=== PATIENT | female | born 1955 | race Caucasian/White ===

== ENCOUNTER 2018-06-18 09:19 | Inpatient (IN) | payer OTHER ==
[2018-06-18] MEDS ORDERED: METOPROLOL TARTRATE 5 MG/5 ML INJ IV ONE (09:51)
[2018-06-18 10:05] LABS: Absolute Lymphocytes (CBC) 3.9 K/uL (0.7-4.9); Absolute Monocytes 0.9 K/uL (0.1-1.3); Absolute Neutrophil 7.4 K/uL (1.8-8.0); Basophils % 0.6 % (0-1.3); Eosinophils % 1.3 % (0-4.4); Hematocrit 36.5 % (36.0-45.0); Lymphocytes % 31.5 % (15.3-44.8); MPV 10.7 fL (7.6-11.3); Monocytes % 6.9 % (3.3-12.3); RBC Red Blood Cell Count 4.29 M/uL (3.86-4.86)
[2018-06-18 10:06] LABS: Protime INR 1.12
[2018-06-18] MEDS ORDERED: ENOXAPARIN 80 MG/0.8 ML SQ ONE (10:09)
[2018-06-18 10:11] LABS: Albumin 4.2 g/dL (3.4-5.0); Bilirubin Direct 0.1 mg/dL (0-0.2); Bilirubin Total 0.3 mg/dL (0.2-1.0); Magnesium 1.9 mg/dL (1.8-2.4); Potassium 4.5 mmol/L (3.5-5.1); Protein, Total 8.6 g/dL (6.4-8.2); Troponin (Emerg Dept Use Only) 0.25 ng/mL (0.0-0.045)
[2018-06-18] MEDS ORDERED: ASPIRIN 325 MG TAB ONE (10:42)
--- NOTE | 2018-06-18 10:48 | ER ---
Nurse's Notes [facility] Name: Indu Amezcua Age: 63 yrs Sex: Female : 1955 Arrival Date: 06/18/2018 Time: 09:22 Bed 8 Private MD: Leoncio Hunt E Diagnosis: Atrial fibrillation and flutter-Atrial fibrillation with rapid ventricular response. New onset atrial fibrillation Presentation: 06/18 09:43 Presenting complaint: Patient states: SOB on exertion and palpitations since Wednesday, iw worse today, has had similar episodes in past but usually doesn't last this long, denies chest pain, one day this past week she broke out in a sweat and thought she was going to pass out. Transition of care: patient was not received from another setting of care. Onset of symptoms was June 13, 2018. Risk Assessment: Do you want to hurt yourself or someone else? Patient reports no desire to harm self or others. Initial Sepsis Screen: Does the patient meet any 2 criteria? No. Patient's initial sepsis screen is negative. Does the patient have a suspected source of infection? No. Patient's initial sepsis screen is negative. Care prior to arrival: None. 09:43 Method Of Arrival: Wheelchair iw 09:43 Acuity: JYOTI 1 iw Historical: - Allergies: 09:49 PENICILLINS; iw 09:49 Codeine; iw - Home Meds: 09:49 lisinopril-hydrochlorothiazide 20-25 mg oral tab twice a day [Active]; hydralazine 25 iw mg Oral tab daily [Active]; metformin 1,000 mg Oral TG24 1 tab 2 times per day [Active]; atorvastatin 40 mg oral tab 1 tab once daily [Active]; allopurinol 100 mg Oral tab 1 tab 2 times per day [Active]; Nexium 40 mg Oral cpDR 1 cap once daily [Active]; - PMHx: 09:49 Hypertension; Diabetes - NIDDM; Hyperlipidemia; iw - PSHx: 09:50 Tubal ligation; Hysterectomy; Appendectomy; Cholecystectomy; Bladder suspension; iw - Immunization history:: Adult Immunizations. - Social history:: Smoking status: Patient/guardian denies using tobacco. - Ebola Screening: : Patient negative for fever greater than or equal to 101.5 degrees Fahrenheit, and additional compatible Ebola Virus Disease symptoms Patient denies exposure to infectious person Patient denies travel to an Ebola-affected area in the 21 days before illness onset No symptoms or risks identified at this time. Screenin:40 Abuse screen: Denies threats or abuse. Denies injuries from another. Nutritional aj screening: No deficits noted. Tuberculosis screening: No symptoms or risk factors identified. Fall Risk None identified. Assessment: 11:40 General: Appears in no apparent distress. comfortable, Behavior is calm, cooperative, aj appropriate for age. Pain: Denies pain. Neuro: Level of Consciousness is awake, alert, obeys commands, Oriented to person, place, time, situation. Cardiovascular: Capillary refill < 3 seconds Patient's skin is warm and dry. Rhythm is atrial fibrillation. Respiratory: Airway is patent Respiratory effort is even, unlabored, Respiratory pattern is regular, symmetrical, Breath sounds are clear. Derm: Skin is intact, is healthy with good turgor, Skin is pink, warm \T\ dry. normal. 12:43 Reassessment: Patient is finishing meal tray before being transported to inpatient room.aj Vital Signs: 09:45 BP 157 / 110; Pulse 171; Resp 19 S; Pulse Ox 98% on R/A; Pain 0/10; iw 09:49 Weight 67.13 kg; Height 5 ft. 2 in. (157.48 cm); hj 09:51 BP 152 / 106; Pulse 145; Resp 18; Pulse Ox 100% on R/A; iw 10:00 BP 125 / 96; Pulse 122; Resp 18; Pulse Ox 100% on R/A; hj 10:13 BP 143 / 106; Pulse 118; Resp 18; Pulse Ox 100% on R/A; hj 10:51 BP 120 / 79; Pulse 120; Resp 18; Pulse Ox 100% on R/A; hj 12:26 BP 115 / 95; Pulse 124; Resp 19; Pulse Ox 99% on R/A; aj 09:49 Body Mass Index 27.07 (67.13 kg, 157.48 cm) Vitals: 09:51 Cardiac Rhythm Assessment Atrial fibrillation W/rapid ventricular response. iw ED Course: 09:22 Patient arrived in ED. rg4 09:22 Leoncio Hunt MD is Private Physician. rg4 09:25 Prince Newberry NP is PHCP. pm1 09:25 Dru Starks MD is Attending Physician. pm1 09:41 Dangelo Greenberg, BELKYS is Primary Nurse. hj 09:47 Triage completed. iw 09:51 Arm band placed on. iw 09:52 XRAY Chest (1 view) In Process Unspecified. EDMS 10:22 Inserted saline lock: 20 gauge in right forearm, using aseptic technique. bp 10:46 Kristian Olivo MD is Hospitalizing Provider. pm1 11:03 Primary Nurse role handed off by Dangelo Greenberg RN aj 11:03 Beti Mijares, BELKYS is Primary Nurse. aj 11:40 Patient has correct armband on for positive identification. aj 12:36 No provider procedures requiring assistance completed. Patient admitted, IV remains in aj place. intact. Administered Medications: 09:40 Drug: Lopressor 5 mg Route: IVP; Site: left antecubital; hj 09:40 Drug: Lopressor 5 mg Route: IVP; Site: left antecubital; hj 10:00 Drug: Lopressor 5 mg Route: IVP; Site: right forearm; hj 10:23 Follow up: Response: No adverse reaction; Blood pressure is lowered hj 10:00 Drug: Lovenox 1 mg/kg Route: Sub-Q; Site: left lower abdomen; hj 10:23 Follow up: Response: No adverse reaction hj 10:24 Drug: Aspirin 325 mg Route: PO; hj 10:32 Follow up: Response: No adverse reaction hj 10:46 Drug: Lopressor (metoprolol TARTRATE) 50 mg Route: PO; hj 10:50 Follow up: Response: No adverse reaction; Blood pressure is lowered hj 10:53 Drug: NS 0.9% 500 ml Route: IV; Rate: bolus; Site: right forearm; hj 10:56 Follow up: IV Status: Completed infusion hj 11:30 Drug: NS 0.9% 1000 ml Route: IV; Rate: 100 ml/hr; Site: right forearm; hj 11:41 Follow up: IV Status: Infusion continued upon admission hj Outcome: 10:47 Decision to Hospitalize by Provider. pm1 12:36 Admitted to Med/surg accompanied by tech, family with patient, via wheelchair, room aj 410, Report called to Nixon 12:36 Condition: good 12:36 Instructed on the need for admit. 13:12 Patient left the ED. aj Signatures: Dispatcher [employer] EDBeti Mesa, RN RN Maggie Eric, RN RN iw Dangelo Greenberg, RN RN hj Prince Newberry, AVIONICS REPAIR TECHNICIAN AVIONICS REPAIR TECHNICIAN pm1 Ebony Mendenhall rg4 Richie Jones, RN RN bp
--- NOTE | 2018-06-18 10:48 | EDPHYS ---
Physician Documentation [facility] Name: Indu Amezcua Age: 63 yrs Sex: Female : 1955 Arrival Date: 06/18/2018 Time: 09:22 Bed 8 Private MD: Leoncio Hunt E ED Physician Dru Starks HPI: 06/18 09:42 This 63 yrs old Female presents to ER via Wheelchair with complaints of pm1 Palpitations, Shortness Of Breath. 09:42 The patient presents with a history of heart racing. Context: The symptoms occur with pm1 light activity, walking from one room of the house to the other. Onset: The symptoms/episode began/occurred 5 day(s) ago. Duration: The patient or guardian reports multiple episodes, that have now resolved. Modifying factors: The symptoms are aggravated by light activity, walking The symptoms are alleviated by nothing. Associated signs and symptoms: Pertinent positives: SOB, Pertinent negatives: chest pain, fever. Severity of symptoms: in the emergency department the symptoms are unchanged Pain is currently a 0 / 10. The patient has not experienced similar symptoms in the past. The patient has not recently seen a physician, the patient's primary care provider is Dr. Hutn. Patient with shortness of breath and palpitations with walking between 10-20 feet, from one room of the house to the other. Shortness of breath and palpitations would go away with rest and lying down. Patient denies any chest pain. On Wednesday she felt faint with the episode of sob and palpitations. Historical: - Allergies: 09:49 PENICILLINS; iw 09:49 Codeine; iw - Home Meds: 09:49 lisinopril-hydrochlorothiazide 20-25 mg oral tab twice a day [Active]; hydralazine 25 iw mg Oral tab daily [Active]; metformin 1,000 mg Oral TG24 1 tab 2 times per day [Active]; atorvastatin 40 mg oral tab 1 tab once daily [Active]; allopurinol 100 mg Oral tab 1 tab 2 times per day [Active]; Nexium 40 mg Oral cpDR 1 cap once daily [Active]; - PMHx: 09:49 Hypertension; Diabetes - NIDDM; Hyperlipidemia; iw - PSHx: 09:50 Tubal ligation; Hysterectomy; Appendectomy; Cholecystectomy; Bladder suspension; iw - Immunization history:: Adult Immunizations. - Social history:: Smoking status: Patient/guardian denies using tobacco. - Ebola Screening: : Patient negative for fever greater than or equal to 101.5 degrees Fahrenheit, and additional compatible Ebola Virus Disease symptoms Patient denies exposure to infectious person Patient denies travel to an Ebola-affected area in the 21 days before illness onset No symptoms or risks identified at this time. ROS: 09:50 Constitutional: Negative for fever, chills, and weight loss, Eyes: Negative for injury, pm1 pain, redness, and discharge, ENT: Negative for injury, pain, and discharge, Neck: Negative for injury, pain, and swelling. 09:50 Abdomen/GI: Negative for abdominal pain, nausea, vomiting, diarrhea, and constipation, Back: Negative for injury and pain, : Negative for injury, bleeding, discharge, and swelling, MS/Extremity: Negative for injury and deformity. 09:50 Skin: Negative for injury, rash, and discoloration, Neuro: Negative for headache, weakness, numbness, tingling, and seizure. 09:50 Cardiovascular: Positive for palpitations, Negative for chest pain, edema. 09:50 Respiratory: Positive for shortness of breath, on exertion. Negative for cough. Exam: 09:44 ECG was reviewed by the Attending Physician. Atrial fibrillation with RVR 166 BPM pm1 09:50 Constitutional: This is a well developed, well nourished patient who is awake, alert, pm1 and in no acute distress. Head/Face: Normocephalic, atraumatic. Eyes: Pupils equal round and reactive to light, extra-ocular motions intact. Lids and lashes normal. Conjunctiva and sclera are non-icteric and not injected. Cornea within normal limits. Periorbital areas with no swelling, redness, or edema. ENT: Nares patent. No nasal discharge, no septal abnormalities noted. Tympanic membranes are normal and external auditory canals are clear. Oropharynx with no redness, swelling, or masses, exudates, or evidence of obstruction, uvula midline. Mucous membranes moist. Neck: Trachea midline, no thyromegaly or masses palpated, and no cervical lymphadenopathy. Supple, full range of motion without nuchal rigidity, or vertebral point tenderness. No Meningismus. Chest/axilla: Normal chest wall appearance and motion. Nontender with no deformity. No lesions are appreciated. 09:50 Respiratory: Lungs have equal breath sounds bilaterally, clear to auscultation and percussion. No rales, rhonchi or wheezes noted. No increased work of breathing, no retractions or nasal flaring. Abdomen/GI: Soft, non-tender, with normal bowel sounds. No distension or tympany. No guarding or rebound. No evidence of tenderness throughout. Back: No spinal tenderness. No costovertebral tenderness. Full range of motion. Skin: Warm, dry with normal turgor. Normal color with no rashes, no lesions, and no evidence of cellulitis. MS/ Extremity: Pulses equal, no cyanosis. Neurovascular intact. Full, normal range of motion. 09:50 Cardiovascular: Rate: tachycardic, Rhythm: irregular, Pulses: no pulse deficits are appreciated, Heart sounds: normal, Edema: is not appreciated. 09:50 Neuro: Orientation: is normal, Motor: is normal, moves all fours, Sensation: is normal, no obvious gross deficits. 10:48 ECG was reviewed by the Attending Physician. Atrial fibrillation 117 BPM, left pm1 ventricular hypertrophy Vital Signs: 09:45 BP 157 / 110; Pulse 171; Resp 19 S; Pulse Ox 98% on R/A; Pain 0/10; iw 09:49 Weight 67.13 kg; Height 5 ft. 2 in. (157.48 cm); hj 09:51 BP 152 / 106; Pulse 145; Resp 18; Pulse Ox 100% on R/A; iw 10:00 BP 125 / 96; Pulse 122; Resp 18; Pulse Ox 100% on R/A; hj 10:13 BP 143 / 106; Pulse 118; Resp 18; Pulse Ox 100% on R/A; hj 10:51 BP 120 / 79; Pulse 120; Resp 18; Pulse Ox 100% on R/A; hj 12:26 BP 115 / 95; Pulse 124; Resp 19; Pulse Ox 99% on R/A; aj 09:49 Body Mass Index 27.07 (67.13 kg, 157.48 cm) hj MDM: 09:26 Patient medically screened. pm1 10:33 Data reviewed: vital signs. Data interpreted: Pulse oximetry: on room air is 100 %. pm1 Interpretation: normal. 10:34 Counseling: I had a detailed discussion with the patient and/or guardian regarding: the pm1 historical points, exam findings, and any diagnostic results supporting the discharge/admit diagnosis, lab results, radiology results, the need for further work-up and treatment in the hospital. 06/18 09:32 Order name: Basic Metabolic Panel pm1 06/18 09:32 Order name: CBC with Diff pm1 06/18 09:32 Order name: LFT's pm1 06/18 09:32 Order name: Magnesium pm1 06/18 09:32 Order name: NT PRO-BNP; Complete Time: 10:23 pm06/18 09:32 Order name: PT-INR; Complete Time: 10:23 pm1 06/18 09:32 Order name: Troponin (emerg Dept Use Only); Complete Time: 10:23 pm06/18 09:32 Order name: XRAY Chest (1 view); Complete Time: 10:51 pm1 06/18 09:33 Order name: Basic Metabolic Panel; Complete Time: 10:23 EDMS 06/18 09:33 Order name: CBC with Automated Diff; Complete Time: 10:23 EDMS 06/18 09:33 Order name: Liver (Hepatic) Function; Complete Time: 10:23 EDMS 06/18 09:33 Order name: Magnesium; Complete Time: 10:23 EDMS 06/18 11:10 Order name: Echo with Doppler EDWA 06/18 09:32 Order name: EKG; Complete Time: 09:34 pm06/18 09:32 Order name: Cardiac monitoring; Complete Time: 10:12 pm06/18 09:32 Order name: EKG - Nurse/Tech; Complete Time: 10:12 pm06/18 09:32 Order name: IV Saline Lock; Complete Time: 10:12 pm06/18 09:32 Order name: Labs collected and sent; Complete Time: 10:12 pm06/18 09:32 Order name: O2 Per Protocol; Complete Time: 10:12 pm06/18 09:32 Order name: O2 Sat Monitoring; Complete Time: 10:12 pm06/18 11:08 Order name: CONS Physician Consult [facility] 06/18 12:19 Order name: Diet Heart Healthy; Complete Time: 12:20 aj Administered Medications: 09:40 Drug: Lopressor 5 mg Route: IVP; Site: left antecubital; hj 09:40 Drug: Lopressor 5 mg Route: IVP; Site: left antecubital; hj 10:00 Drug: Lopressor 5 mg Route: IVP; Site: right forearm; hj 10:23 Follow up: Response: No adverse reaction; Blood pressure is lowered hj 10:00 Drug: Lovenox 1 mg/kg Route: Sub-Q; Site: left lower abdomen; hj 10:23 Follow up: Response: No adverse reaction hj 10:24 Drug: Aspirin 325 mg Route: PO; hj 10:32 Follow up: Response: No adverse reaction hj 10:46 Drug: Lopressor (metoprolol TARTRATE) 50 mg Route: PO; hj 10:50 Follow up: Response: No adverse reaction; Blood pressure is lowered hj 10:53 Drug: NS 0.9% 500 ml Route: IV; Rate: bolus; Site: right forearm; hj 10:56 Follow up: IV Status: Completed infusion hj 11:30 Drug: NS 0.9% 1000 ml Route: IV; Rate: 100 ml/hr; Site: right forearm; hj 11:41 Follow up: IV Status: Infusion continued upon admission Disposition: 13:13 Co-signature as Attending Physician, Dru Starks MD. rn Disposition: 06/18/18 10:47 Hospitalization ordered by Kristian Olivo for Inpatient Admission. Preliminary diagnosis is Atrial fibrillation and flutter - Atrial fibrillation with rapid ventricular response. New onset atrial fibrillation . - Bed requested for Telemetry/MedSurg (Inpatient). - Status is Inpatient Admission. aj - Condition is Stable. - Problem is new. - Symptoms have improved. UTI on Admission? No Signatures: Dispatcher [employer] [facility] Dahlia Arceo RN RN dw Myers, Amanda, RN RN aj Williams, Irene, RN RN iw Nieto, Roman, MD MD rn Joaquin, Henry, RN RN hj Marinas, Patrick, OFE INSURANCE CLAIMS ANALYST pm1 Corrections: (The following items were deleted from the chart) 12:28 10:47 Hospitalization Ordered by Kristian Olivo MD for Inpatient Admission. Preliminary diagnosis is Atrial fibrillation and flutter - Atrial fibrillation with rapid ventricular response. New onset atrial fibrillation . Bed requested for Telemetry/MedSurg (Inpatient). Status is Inpatient Admission. Condition is Stable. Problem is new. Symptoms have improved. UTI on Admission? No. pm1 13:12 12:28 06/18/2018 10:47 Hospitalization Ordered by Kristian Olivo MD for Inpatient aj Admission. Preliminary diagnosis is Atrial fibrillation and flutter - Atrial fibrillation with rapid ventricular response. New onset atrial fibrillation . Bed requested for Telemetry/MedSurg (Inpatient). Status is Inpatient Admission. Condition is Stable. Problem is new. Symptoms have improved. UTI on Admission? No. dw
--- NOTE | 2018-06-18 10:49 | RAD REPORT ---
EXAM DESCRIPTION: RAD - Chest Single View - 06/18/2018 9:54 am CLINICAL HISTORY: SOB;Palpitations Chest pain. COMPARISON: CHEST SINGLE VIEW dated 01/21/2009; CHEST SINGLE VIEW dated 07/17/2006 FINDINGS: Portable technique limits examination quality. The lungs are grossly clear. The heart is mildly enlarged in size. No displaced fractures.Mild levosc oliosis of the lower thoracic spine. IMPRESSION: Mild cardiomegaly.
[2018-06-18] MEDS ORDERED: METOPROLOL TAR 25 MG TAB ONE (11:01)
[2018-06-18] MEDS ORDERED: NA CHLORIDE 0.9% 1,000 ML ONE (11:06)
[2018-06-18] MEDS: INSULIN -REGULAR HUMAN 50 UNIT/0.5 ML ML SQ SCH ×3 (12:40→20:29)
[2018-06-18] MEDS ORDERED: NA CHLORIDE 0.9% 1,000 ML IV SCH (12:40)
--- NOTE | 2018-06-18 12:59 | P.HP ---
Certification for Inpatient Patient admitted to: Inpatient With expected LOS: >2 Midnights Patient will require the following post-hospital care: None Practitioner: I am a practitioner with admitting privileges, knowledge of patient current condition, hospital course, and medical plan of care. Services: Services provided to patient in accordance with Admission requirements found in Title 42 Section 412.3 of the Code of Federal Regulations Patient History Date of Service: 06/18/18 Primary Care Provider: Dr Hunt History of Present Illness: This is a 63-year-old female with significant past medical history of high blood pressure and diabetes who presented to the ED complaining of having some chest palpitations that started on Wednesday. Patient stated that she has been having these chest palpitation on and off for a while now however has been getting progressively worse and thus she decided to come to the ER. Since Wednesday patient stated that the palpitation has been more persistent and she has been getting more tired and thus it was making her word to come to the ER. Along with the chest palpitation patient also complains of having some shortness of breath now and states that when she lays down her palpitations use to go away not any more. Patient states that she has been having increased caffeine intake in terms of Coke where she drinks all day long and has not been able to stop it. Patient denies using tobacco, alcohol, having any fever chills nausea vomiting or abdominal pain at this time In the ER patient had lab work imaging done and was evaluated by the ER physician found the patient has new onset AFib and thus patient was admitted for further care Allergies Penicillins Allergy (Intermediate, Verified 04/08/11 08:25) Hives/Rash - Past Medical/Surgical History Diabetic: Yes -: HTN -: Diabetes Review of Systems 10-point ROS is otherwise unremarkable Physical Examination - Physical Exam General: Alert, In no apparent distress HEENT: Atraumatic, PERRLA, Mucous membr. moist/pink, EOMI, Sclerae nonicteric Neck: Supple, 2+ carotid pulse no bruit, No LAD, Without JVD or thyroid abnormality Respiratory: Normal air movement, Crackles/rales Cardiovascular: Normal S1 S2, Irregular heart rate/rhythm Gastrointestinal: Normal bowel sounds, No tenderness Musculoskeletal: No tenderness Integumentary: No rashes Neurological: Normal gait, Normal speech, Normal strength at 5/5 x4 extr, Normal tone, Normal affect Lymphatics: No axilla or inguinal lymphadenopathy - Studies Laboratory Data (last 24 hrs) 06/18/18 09:35: PT 13.2 H, INR 1.12 06/18/18 09:35: WBC 12.4 H, Hgb 12.0, Hct 36.5, Plt Count 439 H 06/18/18 09:35: Sodium 140, Potassium 4.5, BUN 50 H, Creatinine 1.67 H, Glucose 149 H, Magnesium 1.9, Total Bilirubin 0.3, AST 20, ALT 21, Alkaline Phosphatase 126 H Assessment and Plan - Problems (Diagnosis) (1) New onset a-fib Current Visit: Yes Status: Acute Plan: New onset AFib most likely secondary to caffeine usage -patient currently status post IV Lopressor x1 along with metoprolol 50 mg p.o. x1 in the ER -initial heart rate was more than 170 now heart rate is 110 to 120 -will start patient on metoprolol 25 mg b.i.d. along with weight based Lovenox -will consult cardiology. Will get echocardiogram done at this time (2) Hypertension Current Visit: Yes Status: Chronic Plan: Currently blood pressure is stable -will restart home medication Qualifiers: Hypertension type: essential hypertension Qualified Code(s): I10 - Essential (primary) hypertension (3) Diabetes Current Visit: Yes Status: Chronic Plan: Insulin sliding scale along with Accu-Cheks Qualifiers: Diabetes mellitus type: type 2 Diabetes mellitus detention insulin use: without detention use Diabetes mellitus complication status: without complication Qualified Code(s): E11.9 - Type 2 diabetes mellitus without complications Discharge Plan: Home Plan to discharge in: 48 Hours - Advance Directives Does patient have a Living Will: No Does patient have a Durable POA for Healthcare: No - Code Status/Comfort Care Code Status Assessed: Yes Critical Care: No
[2018-06-18] MEDS ORDERED: GLUCAGON 1 MG/VIAL IM PRN (13:06)
[2018-06-18] MEDS ORDERED: D50W 25 GM/50 ML SYRINGE IV PRN (13:06)
[2018-06-18] MEDS ORDERED: NA CHLORIDE 0.9% 500 ML IV ONE (13:15)
[2018-06-18 13:24] VITALS: BMI 26.9
[2018-06-18 13:49] LABS: Urine Appearance CLEAR; Urine Bilirubin NEGATIVE (NEG); Urine Blood NEGATIVE (NEG); Urine Color YELLOW; Urine Glucose NEGATIVE (NEG); Urine Protein 2+ (NEG); Urine Specific Gravity 1.015 (1.005-1.030)
[2018-06-18 13:59] LABS: Urine Bacteria <20 /HPF (<20); Urine Culture Reflex Order REFLEXED; Urine RBC <5 /HPF (NONE SEEN)
[2018-06-18] MEDS ORDERED: PNEUMOCOCCAL VACCINE 0.5 ML IMVAC ONE (16:00)
[2018-06-18] MEDS ORDERED: METOPROLOL TAR 25 MG TAB PO SCH (18:00)
[2018-06-18] MEDS ORDERED: PANTOPRAZOLE 40MG TABLET PO ONE (21:37)
[2018-06-19] MEDS ORDERED: cloNIDine HCl 0.1 MG TAB PO ONE (00:57)
[2018-06-19] MEDS ORDERED: TEMAZEPAM 15 MG CAP PO PRN (01:47)
[2018-06-19 04:37] LABS: Absolute Lymphocytes (CBC) 1.6 K/uL (0.7-4.9); Absolute Monocytes 0.5 K/uL (0.1-1.3); Absolute Neutrophil 10.2 K/uL (1.8-8.0); Basophils % 0.4 % (0-1.3); Eosinophils % 0.1 % (0-4.4); Hematocrit 31.7 % (36.0-45.0); Lymphocytes % 12.8 % (15.3-44.8); MPV 10.5 fL (7.6-11.3); Monocytes % 4.4 % (3.3-12.3); RBC Red Blood Cell Count 3.75 M/uL (3.86-4.86)
[2018-06-19 04:44] LABS: Albumin 3.3 g/dL (3.4-5.0); Bilirubin Total 0.4 mg/dL (0.2-1.0); Potassium 5.2 mmol/L (3.5-5.1); Protein, Total 6.7 g/dL (6.4-8.2)
[2018-06-19] MEDS: INSULIN -REGULAR HUMAN 50 UNIT/0.5 ML ML SQ SCH ×2 (07:30→11:30)
--- NOTE | 2018-06-19 08:48 | EKG ---
Test Date: 2018-06-18 Test Time: 10:36:30 Environmental Planning Engineer: BENOIT MEASUREMENT RESULTS: Intervals: Rate: 117 OR: 198 QRSD: 112 QT: 314 QTc: 438 [place]: P: OR: 198 QRS: -12 T: 155 INTERPRETIVE STATEMENTS: afib with rvr Left ventricular hypertrophy with repolarization abnormality Inferior infarct, age undetermined Abnormal ECG Compared to ECG 06/18/2018 09:32:02 Early repolarization now present Electronically Signed On 06-19-18 08:47:13 CDT by Ron Wallace
--- NOTE | 2018-06-19 08:48 | EKG ---
Test Date: 2018-06-18 Test Time: 09:32:02 Assistant Produce Manager: BENOIT MEASUREMENT RESULTS: Intervals: Rate: 166 VT: QRSD: 110 QT: 266 QTc: 442 [place]: P: VT: QRS: -12 T: 167 INTERPRETIVE STATEMENTS: Atrial fibrillation with rapid ventricular response Voltage criteria for left ventricular hypertrophy Cannot rule out Septal infarct, age undetermined Marked ST abnormality, possible inferolateral subendocardial injury Abnormal ECG Compared to ECG 01/24/2009 06:43:43 Myocardial infarct finding now present ST (T wave) deviation now present Sinus bradycardia no longer present Early repolarization no longer present Electronically Signed On 06-19-18 08:47:20 CDT by Ron Wallace
[2018-06-19] MEDS ORDERED: ENOXAPARIN 80 MG/0.8 ML SQ SCH (09:00)
[2018-06-19] MEDS ORDERED: METOPROLOL TAR 50 MG TAB PO SCH (09:00)
[2018-06-19] MEDS ORDERED: SOD POLYSTYREN SUL 15 GM/60 ML UCUP PO ONE (10:02)
[2018-06-19] MEDS ORDERED: NA CHLORIDE 0.9% 500 ML IV ONE (10:05)
--- NOTE | 2018-06-19 10:35 | P.SSS ---
Patient History Date of Service: 06/19/18 Primary Care Provider: Dr Hunt History of Present Illness: This is a 63-year-old female with significant past medical history of high blood pressure and diabetes who presented to the ED complaining of having some chest palpitations that started on Wednesday. Patient stated that she has been having these chest palpitation on and off for a while now however has been getting progressively worse and thus she decided to come to the ER. Since Wednesday patient stated that the palpitation has been more persistent and she has been getting more tired and thus it was making her word to come to the ER. Along with the chest palpitation patient also complains of having some shortness of breath now and states that when she lays down her palpitations use to go away not any more. Patient states that she has been having increased caffeine intake in terms of Coke where she drinks all day long and has not been able to stop it. Patient denies using tobacco, alcohol, having any fever chills nausea vomiting or abdominal pain at this time In the ER patient had lab work imaging done and was evaluated by the ER physician found the patient has new onset AFib and thus patient was admitted for further care Allergies Penicillins Allergy (Intermediate, Verified 04/08/11 08:25) Hives/Rash Home Medications: Allopurinol 100 mg PO BID 06/18/18 Aspirin [Adult Low Dose Aspirin EC] 81 mg PO DAILY 06/18/18 Atorvastatin Calcium 40 mg PO DAILY 06/18/18 Esomeprazole Mag Trihydrate [Nexium] 40 mg PO DAILY 06/18/18 Metformin HCl 1,000 mg PO BID 06/18/18 Aspirin [Aspir-Low] 81 mg PO DAILY #30 tablet. 06/19/18 - Past Medical/Surgical History Has patient received pneumonia vaccine in the past: No Diabetic: Yes -: Hypertension -: Diabetes -: Hyperlipidemia -: GERD -: GOUT -: 1980 - Bilateral Tubal Ligation -: 1992 - Hysterectomy -: 2006 - Appendectomy -: 2006 - Cholycystetomy And Hernia -: 2007 - Bladder suspension(Bladder Lift Suregery) -: Bilateral Cataract Surgery - Family History Father -: Cancer Notes: Leukemia Mother -: Cancer Brother -: Heart disease Notes: AFib - Social History Smoking Status: Never smoker Alcohol use: No CD- Drugs: No Caffeine use: No Place of Residence: Home Review of Systems 10-point ROS is otherwise unremarkable Physical Examination - Vital Signs Temperature: 97.4 F Blood Pressure: 146/88 Pulse: 65 Respirations: 24 Pulse Ox (%): 99 - Physical Exam General: Alert, In no apparent distress HEENT: Atraumatic, PERRLA, Mucous membr. moist/pink, EOMI, Sclerae nonicteric Neck: Supple, 2+ carotid pulse no bruit, No LAD, Without JVD or thyroid abnormality Respiratory: Clear to auscultation bilaterally, Normal air movement Cardiovascular: Regular rate/rhythm, Normal S1 S2 Gastrointestinal: Normal bowel sounds, No tenderness Musculoskeletal: No tenderness Integumentary: No rashes Neurological: Normal gait, Normal speech, Normal strength at 5/5 x4 extr, Normal tone, Normal affect Lymphatics: No axilla or inguinal lymphadenopathy - Diagnosis (Problem(s)) (1) New onset a-fib Current Visit: Yes Status: Acute (2) Hypertension Current Visit: Yes Status: Chronic Qualifiers: Hypertension type: essential hypertension Qualified Code(s): I10 - Essential (primary) hypertension (3) Diabetes Current Visit: Yes Status: Chronic Qualifiers: Diabetes mellitus type: type 2 Diabetes mellitus long-term insulin use: without salvage determiner use Diabetes mellitus complication status: without complication Qualified Code(s): E11.9 - Type 2 diabetes mellitus without complications Treatment Summary: Overall during the hospital stay patient remained stable Patient was initially admitted to the hospital for new onset AFib. Cardiology was consulted. Cardiology started patient on metoprolol 50 mg daily. Along with baby aspirin. Patient did well overall. Cardiology at that time recommended the patient be discharged home and follow up outpatient on Wednesday to get echo and stress test done outpatient. Patient demonstrate understanding remained asymptomatic while here in the hospital. Patient also had elevated potassium of 5.2 along with BMP. Patient was given Kayexalate x1 here in the hospital. And NS at 5:00 a.m.. Potassium was recheck which was within normal limits. Patient at that time was discharged home under stable condition was asked to follow up with PCP along with cardiology to follow up with PMD along with stress test and echocardiogram. Patient demonstrate understanding and thus was discharged home under stable condition - Disposition Disposition: ROUTINE DISCHARGE Condition: GOOD Patient Discharge Instructions: Please f.u with PCP and Dr Wallace on wednesday. New medication. Metoprolol 50mg Daily. ASA 81mg daily. Stop. lisinopril/HCTZ Diet: Regular Activity: Ad yesi
[2018-06-19 12:27] VITALS: O2SAT 100
[2018-06-19 13:17] VITALS: BP 135/64; TEMP 97.1
--- NOTE | 2018-06-19 14:35 | CON ---
Date of Consultation: 06/19/[address] Quijano's service on 06/18/2018. I am seeing the patient on 06/19/2018. Reason For Consultation: New-onset atrial fibrillation. History Of Present Illness: Ms. Amezcua is a 63-year-old woman who does not have any past cardiac histo ry per se, although she has multiple cardiac risk factors. She has hypertension, diabetes, dyslipide raman, gastroesophageal reflux disease, and gout. She apparently overdoes drinking caffeine in the for m [employer]. Denies much in way of alcohol use or drug use. She came in with rapid atrial fibrillati on, palpitations, was given IV metoprolol and p.o. metoprolol, as well as Lovenox, and overnight she converted back to sinus rhythm. She denied any chest pain, denied any syncope. She denied any PND, orthopnea, or pedal edema. Recently, she denied any fever or chills or cough. Past Medical History: As stated above. Allergies: SHE IS ALLERGIC TO PENICILLIN AND CODEINE. Review of Systems: Negative. Social History: Negative. Family History: Noncontributory. Medications: Medications at home include allopurinol, aspirin, Lipitor, Nexium, metformin, lisinopri l with hydrochlorothiazide, and hydralazine. Physical Examination: Vital Signs: Stable. She was in a sinus rhythm today. She was afebrile. HEENT: Negative. Neck: Supple without any bruit, lymphadenopathy, JVD, or thyromegaly. Chest: Clear to auscultation and percussion. Cardiac Exam: Revealed a regular rhythm and rate with an S4 gallop. No murmurs or rubs. Abdomen: Benign. Extremities: Revealed no clubbing, cyanosis, or edema. Skin: Dry and intact. Neurological: She was nonfocal. Impression And Plan: 1.New onset atrial fibrillation that had resolved after beta-bunny. The patient should go home on metoprolol 50 b.i.d., aspirin 81 mg daily. I prefer she gets off her hydralazine. She was instruct ed to watch her carbohydrate and caffeine intake. I will get her set up for an outpatient echocardio gram and stress test, preferably Lexiscan in the near future. 2.Gout. 3.Dyslipidemia, on Lipitor. 4.Reflux, on Nexium. 5.Diabetes, well controlled, on metformin. 6.Hypertension, well controlled. 7.Renal insufficiency. Creatinine 1.67. We will have to watch that. 8.Finally, she had an elevated troponin and BNP, very common with atrial fibrillation. KEVIN/EPHRAIM Voice ID: [id number] Report ID: [id number]
[2018-06-19 15:22] LABS: Potassium 4.2 mmol/L (3.5-5.1)
[2018-06-19] MEDS ORDERED: ALLOPURINOL 100 MG TAB PO SCH (21:00)
[2018-06-20] MEDS ORDERED: PANTOPRAZOLE 40MG TABLET PO SCH (06:30)
[2018-06-20] MEDS ORDERED: HOME MED 1 EA UNK (Esomeprazole Mag Trihydrate [Nexium] 40 MG) PO SCH (09:00)
[2018-06-20] MEDS ORDERED: ASPIRIN EC 81 MG TAB PO SCH (09:00)
[2018-06-20] MEDS ORDERED: METOPROLOL TAR 50 MG TAB PO SCH (09:00)
[2018-06-20] MEDS ORDERED: ATORVASTATIN 40 MG TAB PO SCH (09:00)
== END 2018-06-19 15:49 | disposition home or self-care (01) | DRG 310 ==
LOC: ER 09:19 → ERHOLD 11:06 → 4TH 12:36
PROVIDERS: ADMIT Family Medicine; ATTEND Family Medicine
DX: I48.91 Unspecified atrial fibrillation (principal); I10 Essential (primary) hypertension; E11.9 Type 2 diabetes mellitus without complications; N28.9 Disorder of kidney and ureter, unspecified; Z88.0 Allergy status to penicillin; Z23 Encounter for immunization; Z79.82 Long term (current) use of aspirin
CPT/HCPCS: 36415; 71045; 80048; 80053; 80076; 81001; 82962; 83735; 83880; 84484; 85025; 85610; 87077; 87086; 87088; 87186; 90471; 90670; 93005; 94760; 96365; 96367; 96372; 99291; J1650; J7030